=== PATIENT | male | born 1985 | race Hispanic/Latino ===

== ENCOUNTER 2019-09-28 | Emergency (ER) | payer MEDICAID | END 2019-09-28 20:42 | disposition home or self-care (01) | DX: S62.663A Nondisplaced fracture of distal phalanx of left middle finger, initial encounter for closed fracture (principal); X58.XXXA Exposure to other specified factors, initial encounter; Y93.89 Activity, other specified; Y92.89 Other specified places as the place of occurrence of the external cause; Y99.8 Other external cause status ==

== ENCOUNTER 2020-07-03 03:30 | Emergency (ER) | payer MEDICAID, OTHER ==
[2020-07-03] MEDS ORDERED: IBUPROFEN 600 MG TABLET ONE (05:18)
[2020-07-03] MEDS ORDERED: HYDROCODONE/ACETAMINOPHEN 10/325 MG TAB ONE (05:18)
== END 2020-07-03 05:49 | disposition home or self-care (01) ==
LOC: EDH 03:30
DX: S62.314A Displaced fracture of base of fourth metacarpal bone, right hand, initial encounter for closed fracture (principal); Y04.2XXA Assault by strike against or bumped into by another person, initial encounter; Y93.89 Activity, other specified; Y92.89 Other specified places as the place of occurrence of the external cause; Y99.8 Other external cause status
CPT/HCPCS: 29125; 73130